=== PATIENT | female | born 1960 | race Caucasian/White ===

== ENCOUNTER 2020-04-04 06:27 | Day surgery (SDC) | payer OTHER, SELFPAY ==
[~2020-04-04] VITALS: Ht 146 cm; Wt 66.2 kg
[2020-04-04] MEDS ORDERED: fentaNYL citrate 0.05 MG/ML VIAL ONE (08:21)
[2020-04-04] MEDS ORDERED: LIDOCAINE 2% 100 MG/5 ML UJET TP ONE (08:21)
== END 2020-04-04 09:30 | disposition home or self-care (01) ==
LOC: MDS 06:27 → MFCC 06:28 → MDS 09:30
PROVIDERS: ATTEND Internal Medicine Gastroenterology
DX: Z12.11 Encounter for screening for malignant neoplasm of colon (principal); Z86.010 Personal history of colon polyps; Z88.8 Allergy status to other drugs, medicaments and biological substances; Z20.828 Contact with and (suspected) exposure to other viral communicable diseases
CPT/HCPCS: 45378; J3010; U0003